=== PATIENT | male | born 1955 | race Caucasian/White ===

== ENCOUNTER 2025-03-11 09:04 | Inpatient (IN) | payer MEDICARE, OTHER ==
[~2025-03-11] VITALS: Ht 162.6 cm; Wt 74.8 kg
[2025-03-11] MEDS ORDERED: LIDOCAINE 2%-EPI 1:100,000 30 ML VIAL ONE (12:55)
[2025-03-11] MEDS ORDERED: dexaMETHasone SOD PHOSPHATE 2 ML ONE (12:55)
[2025-03-11] MEDS ORDERED: VANCOMYCIN 1 GM VIAL ONE (12:56)
[2025-03-11] MEDS ORDERED: FENTANYL PF 250MCG/5ML AMPUL ONE (13:00)
[2025-03-11 16:00] VITALS: BP 134/95; TEMP 97.3; O2SAT 96
[2025-03-11] MEDS ORDERED: MAG HYDROX/AL HYDROX/SIMETH 30 ML UDC PO PRN (16:00)
[2025-03-11] MEDS ORDERED: Z GUARD REMEDY 4 OZ OINT TP PRN (16:00)
[2025-03-11] MEDS ORDERED: ONDANSETRON HCL/PF 4 MG/2 ML VIAL IVP PRN ×2 (16:00→18:00)
[2025-03-11] MEDS ORDERED: MAGNESIUM HYDROXIDE 30 ML UDC PO PRN (16:00)
[2025-03-11] MEDS: ACETAMINOPHEN 325 MG TABLET PO PRN (17:34)
[2025-03-11] MEDS ORDERED: HYDROMORPHONE 1 MG/1 ML DISP.SYRIN IV PRN (18:00)
[2025-03-11] MEDS: IV NS 0.9% 1,000 ML IV PRN (18:08)
[2025-03-11 20:00] VITALS: BP 124/75; TEMP 97.9; O2SAT 95
[2025-03-12] MEDS: VANCOMYCIN 1 GM in IV D5W 250ml IV SCH (00:13)
[2025-03-12 08:00] VITALS: BP 128/74; TEMP 98.4; O2SAT 94
== END 2025-03-12 11:30 | disposition home or self-care (01) | DRG 141 ==
LOC: DS 09:04 → MED 13:26
PROC: 0NUR07Z Supplement Maxilla with Autologous Tissue Substitute, Open Approach (ICD-10-PCS; 2025-03-11)
PROC: 0NUT07Z Supplement Right Mandible with Autologous Tissue Substitute, Open Approach (ICD-10-PCS; 2025-03-11)
PROC: 0NSR04Z Reposition Maxilla with Internal Fixation Device, Open Approach (ICD-10-PCS; 2025-03-11)
PROC: 0N5T0ZZ Destruction of Right Mandible, Open Approach (ICD-10-PCS; 2025-03-11)
PROC: 0N5V0ZZ Destruction of Left Mandible, Open Approach (ICD-10-PCS; 2025-03-11)
PROC: 0NSV04Z Reposition Left Mandible with Internal Fixation Device, Open Approach (ICD-10-PCS; 2025-03-11)
PROC: 0NST04Z Reposition Right Mandible with Internal Fixation Device, Open Approach (ICD-10-PCS; 2025-03-11)
PROC: 0NBR0ZX Excision of Maxilla, Open Approach, Diagnostic (ICD-10-PCS; 2025-03-11)
PROC: 0NUV07Z Supplement Left Mandible with Autologous Tissue Substitute, Open Approach (ICD-10-PCS; principal; 2025-03-11 12:30)
DX: S02.40DA Maxillary fracture, left side, initial encounter for closed fracture (principal); M87.9 Osteonecrosis, unspecified; M84.88 Other disorders of continuity of bone, other site; S02.40CA Maxillary fracture, right side, initial encounter for closed fracture; S02.609A Fracture of mandible, unspecified, initial encounter for closed fracture; M27.2 Inflammatory conditions of jaws; I10 Essential (primary) hypertension; J44.9 Chronic obstructive pulmonary disease, unspecified; E78.5 Hyperlipidemia, unspecified; E11.9 Type 2 diabetes mellitus without complications; D16.5 Benign neoplasm of lower jaw bone; D16.4 Benign neoplasm of bones of skull and face; X58.XXXA Exposure to other specified factors, initial encounter; Y92.9 Unspecified place or not applicable; J32.9 Chronic sinusitis, unspecified
CPT/HCPCS: A4217; A4223; A4338; C1713; G0378; J0360; J0461; J0690; J1100; J2704; J3010; J3373; J3490; J7030; J7060